=== PATIENT | female | born 1985 | race Hispanic/Latino ===

== ENCOUNTER 2017-06-04 11:08 | Emergency (ER) | payer MEDICARE, MEDICAID ==
[~2017-06-04] VITALS: Ht 154.9 cm; Wt 52.0 kg
[2017-06-04] MEDS ORDERED: IBUPROFEN600 MG PO (12:06)
[2017-06-04 12:25] VITALS: BP 119/85
== END 2017-06-04 12:25 | disposition home or self-care (01) ==
LOC: ED 11:08
DX: M25.531 Pain in right wrist (principal); W19.XXXA Unspecified fall, initial encounter

== ENCOUNTER 2017-12-09 18:24 | Emergency (ER) | payer MEDICARE, MEDICAID ==
[~2017-12-09] VITALS: Ht 154.9 cm; Wt 45.0 kg
[~2017-12-09 18:24] MED LIST: IBUPROFEN600 MG PO
[2017-12-09 20:45] VITALS: BP 134/77
== END 2017-12-09 20:48 | disposition home or self-care (01) ==
LOC: ED 18:24
DX: R51 Headache (principal)